=== PATIENT | female | born 1970 | race African-American/Black ===

== ENCOUNTER 2017-04-30 08:41 | Emergency (ER) | payer MEDICARE ==
[2017-04-30] MEDS: BENZONATATE 100 MG CAPSULE. PO (09:58)
[2017-04-30] MEDS: predniSONE 10 MG TABLET PO (09:58)
[2017-04-30 10:15] LABS: URINE HCG POC HCG NEGATIVE (Negative)
[2017-04-30 10:16] LABS: INFLUENZA A PATIENT NEGATIVE (NEGATIVE); INFLUENZA B PATIENT NEGATIVE (NEGATIVE); OBC FLU VALID
[2017-04-30 10:24] LABS: BILIRUBIN,URINE NEGATIVE (NEG); CLARITY,URINE CLEAR; COLOR,URINE YELLOW; GLUCOSE,URINE NEGATIVE (NEG); NITRITE,URINE NEGATIVE (NEG); PROTEIN,URINE NEGATIVE (NEG-TRACE)
[2017-04-30 10:33] LABS: SQUAMOUS EPITHELIAL CELL,UR MOD /LPF
[2017-04-30 10:34] LABS: BACTERIA,URINE MOD /HPF (0-FEW); RBC,URINE 0 /HPF (0-2)
== END 2017-04-30 11:10 | disposition home or self-care (01) ==
LOC: ER 08:41
DX: J20.9 Acute bronchitis, unspecified (principal)
CPT/HCPCS: 71046; 81001; 81025; 87804; 87804-59; 99285-25; J7512

== ENCOUNTER 2019-03-29 10:25 | Emergency (ER) | payer MEDICARE ==
[~2019-03-29] VITALS: Ht 180.3 cm; Wt 87.5 kg
[~2019-03-29 10:25] MED LIST: AZIT250T6 PO; BENZ100C PO; METH4TAB2 PO
[2019-03-29 10:45] VITALS: BP 128/77
[2019-03-29] MEDS ORDERED: BENZONATATE 100 MG CAPSULE. PO ONE (11:30)
[2019-03-29] MEDS ORDERED: AMOX500C PO (12:58)
[2019-03-29] MEDS ORDERED: BENZ100C PO (12:58)
[2019-03-29] MEDS ORDERED: ALBU2.5V8 IH (12:58)
--- NOTE | 2019-03-29 12:58 | PHYS DOC ---
Past Medical History Past Medical History: Other Additional Past Medical Histor: DEAF Past Surgical History: Other Additional Past Surgical Histo: L OVARY/CYST REMOVED Alcohol Use: None Drug Use: None Adult General Chief Complaint Chief Complaint: COUGH HPI HPI Patient is a 48 year old deaf female patient without history of medical problem who presents with complaint of cough. Patient complaining of nonproductive cough with nasal congestion, sore throat and earache for the last 1 week that gradually getting worse and did not get better with taking [id number] medication. Patient denies fever, vomiting, diarrhea, sick contact. History was taking with writing the questions and answers. Review of Systems Review of Systems Constitutional: Denies fever or chills [] Eyes: Denies change in visual acuity, redness, or eye pain [] HENT: Reports nasal congestion and sore throat Respiratory: Reports cough, denies shortness of breath Cardiovascular: No additional information not addressed in HPI [] GI: Denies abdominal pain, nausea, vomiting, bloody stools or diarrhea [] : Denies dysuria or hematuria [] Musculoskeletal: Denies back pain or joint pain [] Integument: Denies rash or skin lesions [] Neurologic: Denies headache, focal weakness or sensory changes [] Endocrine: Denies polyuria or polydipsia [] All other systems were reviewed and found to be within normal limits, except as documented in this note. Current Medications Current Medications Current Medications Medications (Trade) Dose Ordered Sig/Dawit Start Time Stop Time Status Last Admin Dose Admin Benzonatate (Tessalon Perle) 100 mg 1X ONCE 03/29/19 11:30 03/29/19 11:31 DC 03/29/19 11:13 100 MG Allergies Allergies Allergies Coded Allergies Type Severity Reaction Last Updated Verified No Known Drug Allergies 04/30/17 No Physical Exam Physical Exam Constitutional: Well developed, well nourished, mild distress, non-toxic appearance. [] HENT: Normocephalic, atraumatic, bilateral external ears normal, pharyngeal erythema, oropharynx moist, no oral exudates, nasal congestion. [] Eyes: PERRLA, EOMI, conjunctiva normal, no discharge. [] Neck: Normal range of motion, no tenderness, supple, no stridor. [] Cardiovascular:Heart rate regular rhythm, no murmur [] Lungs & Thorax: Bilateral breath sounds clear to auscultation [] Neurologic: Alert and oriented X 3, normal motor function, normal sensory func tion, no focal deficits noted. [] Psychologic: Affect normal, judgement normal, mood normal. [] Current Patient Data Vital Signs Vital Signs Date Time Temp Pulse Resp B/P (MAP) Pulse Ox O2 Delivery O2 Flow Rate FiO2 03/29/19 10:45 98.4 89 16 128/77 (94) 98 Room Air 98.4 EKG EKG [] Radiology/Procedures Radiology/Procedures Chest X-ray interpreted by me and did not show acute changes Course & Med Decision Making Course & Med Decision Making Pertinent Imaging studies reviewed. (See chart for details) I've spoken with the patient and/or caregivers. I've explained the patient's condition, diagnosis and treatment plan based on information available to me at this time. I've answered the patient's and/or caregivers questions and addressed any concerns. The patient and/or caregivers have a good understanding the patient's diagnosis, condition and treatment plan as can be expected at this point. Vital signs have been stabilized. The patient's condition is stable for discharge from the emergency department. The patient will pursue further outpatient evaluation with her primary care provider or other designated consulting physician as outlined in the discharge instructions. Patient and/or caregivers are agreeable to this plan of care and follow-up instructions have been explained in detail. The patient and/or caregivers have received these instructions in written format and expressed understanding of these discharge instructions. The patient and her caregivers are aware that if any significant change in condition or worsening of symptoms should prompt him to immediately return to this of the closest emergency department. If an emergent department is not readily available I would encourage him to call 911. Chu Disclaimer Chu Disclaimer This electronic medical record was generated, in whole or in part, using a voice recognition dictation system. Departure Departure Impression: Primary Impression: Acute bronchitis Additional Impression: Cough Disposition: HOME, SELF-CARE (at 1256) Condition: STABLE Referrals: UNKNOWN PCP NAME (PCP) Patient Instructions: Acute Bronchitis, Cough, Adult Additional Instructions: Drink plenty of liquids Follow-up with your primary care physician in 5-7 days Return to ER if not getting better Scripts Benzonatate (TESSALON PERLE) 100 Mg Capsule 1 CAP PO TID for cough, #21 CAP Prov: LOREN ROKC MD 03/29/19 Albuterol Sulfate (PROAIR HFA INHALER) 8.5 Gm Hfa.aer.ad 2 PUFF IH PRN Q4-6HRS PRN for wheezing for 21 Days, #1 INHALER 0 Refills Prov: LOREN ROCK MD 03/29/19 Amoxicillin (AMOXICILLIN) 500 Mg Capsule 1 CAP PO Q8HRS for infection, #30 CAP Prov: LOREN ROCK MD 03/29/19 Problem Qualifiers Primary Impression: Acute bronchitis Bronchitis organism: unspecified organism Qualified Codes: J20.9 - Acute bronchitis, unspecified LOREN ROCK MD Mar 29, 2019 12:58
--- NOTE | 2019-03-29 13:24 | RAD ---
Chest PA and lateral: Reason for examination: Coughing for 2 weeks. The heart size is normal. Mediastinum is unremarkable. Lung guerrier show some mild patchy infiltrates in the left lower lobe. No pleural effusions are seen. No acute bony abnormalities are seen. Impression: Mild patchy infiltrates in the left lower lobe. Electronically signed by: Iva Castro MD (03/29/2019 1:22 PM) [facility] [place]
== END 2019-03-29 13:05 | disposition home or self-care (01) ==
LOC: ER 10:25
DX: J20.9 Acute bronchitis, unspecified (principal)
CPT/HCPCS: 71046; 99284